=== PATIENT | female | born 1965 | race Caucasian/White ===

== ENCOUNTER 2018-07-30 23:18 | Inpatient (IN) | payer OTHER, MEDICAID ==
[~2018-07-30] VITALS: Ht 170.2 cm; Wt 69.9 kg
[2018-07-31] MEDS ORDERED: QUEtiapine FUMARATE 100 MG TABLET PO PRN (01:45)
[2018-07-31 02:38] VITALS: BP 130/82
[2018-07-31] MEDS ORDERED: PNEUMOCOCCAL VACCINE POLYVALENT 0.5 ML VIAL [PPSV23] IM ONE (05:30)
[2018-07-31 08:44] VITALS: BP 124/71
[2018-07-31] MEDS ORDERED: PROMETHAZINE HCL 25 MG TABLET PO PRN (11:15)
[2018-07-31] MEDS ORDERED: ACETAMINOPHEN 325 MG TABLET PO PRN (11:15)
[2018-07-31] MEDS ORDERED: MAGNESIUM HYDROXIDE SUSPENSION 30 ML UDCUP PO PRN (11:15)
[2018-07-31] MEDS ORDERED: LOPERAMIDE HCL 2 MG CAPSULE PO PRN (11:15)
[2018-07-31] MEDS ORDERED: GuaiFENesin/D-METHORPHAN [SUGAR-FREE] 200-20MG/10 ML SYRUP UDCUP PO PRN (11:15)
[2018-07-31] MEDS ORDERED: TUBERCULIN, PURIFIED PROTEIN DERIVATIVE 5 TU/0.1 ML SYRINGE ID ONE (11:15)
[2018-07-31] MEDS ORDERED: MAG HYDROX/AL HYDROX/SIMETH ES 30 ML SUSPENSION UDCUP PO PRN (11:15)
[2018-07-31] MEDS ORDERED: LORazepam 2 MG TABLET PO PRN (11:15)
[2018-07-31] MEDS: LORazepam 2 MG TABLET PO PRN ×2 (13:09→20:42)
[2018-07-31 16:26] VITALS: BP 125/89
[2018-07-31] MEDS: THIAMINE HCL 100 MG TABLET PO SCH (19:46)
[2018-07-31] MEDS: OLANZapine 5 MG RAPDIS TABLET PO SCH (20:47)
[2018-08-01 06:22] VITALS: BP 120/82
[2018-08-01 07:56] LABS: BASOPHILS % (AUTO) 0.7 % (0.0-2.0); EOSINOPHILS % (AUTO) 0 % (1.0-6.0); HEMATOCRIT 40.7 % (36-46); HEMOGLOBIN 13.4 g/dL (12.0-16.0); LYMPHOCYTES # (AUTO) 1.8 K/uL (1.0-4.8); LYMPHOCYTES % (AUTO) 28.4 % (22.0-44.0); MEAN CORPUSCULAR HEMOGLOBIN 31.4 pg (26.0-34.0); MEAN CORPUSCULAR HGB CONC 32.9 G/dL (31.0-37.0); MEAN CORPUSCULAR VOLUME 95 fL (80-100); MONOCYTES # (AUTO) 0.4 K/uL (0.1-1.0); MONOCYTES % (AUTO) 6.2 % (2.0-9.0); NEUTROPHILS # (AUTO) 4.1 K/uL (1.8-7.7); NEUTROPHILS % (AUTO) 64.7 % (40.0-70.0); PLATELET COUNT (AUTO) 325 K/uL (150-450); RED BLOOD CELL COUNT(AUTO) 4.27 MIL/uL (4.00-5.20); RED CELL DISTRIBUTION WIDTH 13.8 % (11.5-14.5)
[2018-08-01] MEDS: MULTIVITAMINS WITH MINERALS, THERAPEUTIC TABLET PO SCH (08:23)
[2018-08-01] MEDS: THIAMINE HCL 100 MG TABLET PO SCH ×2 (08:23→16:43)
[2018-08-01] MEDS: NALTREXONE HCL 50 MG TABLET PO SCH (08:24)
[2018-08-01] MEDS: FOLIC ACID 1 MG TABLET PO SCH (08:24)
[2018-08-01] MEDS: FLUoxetine HCL 20 MG CAPSULE PO SCH (08:24)
[2018-08-01 08:43] VITALS: BP 106/63
[2018-08-01 08:48] LABS: HEMOGLOBIN A1C 5.4 % (4.5-6.2)
[2018-08-01 08:59] LABS: ALANINE AMINOTRANSFERASE 20 U/L (12-78); ALBUMIN 3.1 g/dL (3.4-5.0); ALKALINE PHOSPHATASE 68 U/L (46-116); ANION GAP 5 mmol/L (8-16); ASPARTATE AMINOTRANSFERASE 14 U/L (15-37); BILIRUBIN,TOTAL 0.3 mg/dL (0.1-1.0); CALCIUM, TOTAL 8.6 mg/dL (8.8-10.5); CARBON DIOXIDE 31 mmol/L (22-29); CHLORIDE 103 mmol/L (98-107); CHOL/HDL RATIO 2.8 (3.9-5.7); CHOLESTEROL 168 mg/dL (131-200); CREATININE 0.74 mg/dL (0.60-1.30); FREE T4 (FREE THYROXINE) 0.97 ng/dL (0.76-1.46); GLOMERULAR FILTR. RATE CALC > 60 mL/min (>60); GLUCOSE,RANDOM 99 mg/dL (70-110); HDL CHOLESTEROL 59 mg/dL (40-60); LDL CHOL (CALC.) 84 mg/dL (0-130); POTASSIUM 4.3 mmol/L (3.5-5.1); SODIUM SERUM 139 mmol/L (136-145); THYROID STIMULATING HORMONE 1.51 uIU/mL (0.36-3.74); TOTAL PROTEIN, SERUM 6.2 g/dL (6.4-8.2); TRIGLYCERIDES 123 mg/dL (15-150); UREA NITROGEN, BLOOD 17 mg/dL (7-18)
[2018-08-01] MEDS: LORazepam 2 MG TABLET PO PRN ×2 (11:01→17:35)
[2018-08-01] MEDS: OLANZapine 5 MG RAPDIS TABLET PO PRN (11:01)
[2018-08-01 16:08] VITALS: BP 124/60
[2018-08-01] MEDS: DOCUSATE SODIUM 250 MG CAPSULE PO SCH (20:20)
[2018-08-01] MEDS: OLANZapine 5 MG RAPDIS TABLET PO SCH (20:20)
[2018-08-02 03:30] VITALS: BP 120/69
[2018-08-02 08:17] VITALS: BP 114/70
[2018-08-02] MEDS: FLUoxetine HCL 20 MG CAPSULE PO SCH (08:26)
[2018-08-02] MEDS: HydrOXYzine PAMOATE 50 MG CAPSULE PO PRN ×2 (08:26→12:44)
[2018-08-02] MEDS: OLANZapine 5 MG RAPDIS TABLET PO PRN ×2 (08:26→16:59)
[2018-08-02] MEDS: NALTREXONE HCL 50 MG TABLET PO SCH (08:26)
[2018-08-02] MEDS: LORazepam 2 MG TABLET PO PRN ×3 (08:26→16:59)
[2018-08-02] MEDS: FOLIC ACID 1 MG TABLET PO SCH (08:27)
[2018-08-02] MEDS: THIAMINE HCL 100 MG TABLET PO SCH ×2 (08:27→16:59)
[2018-08-02] MEDS: MULTIVITAMINS WITH MINERALS, THERAPEUTIC TABLET PO SCH (08:27)
[2018-08-02 16:16] VITALS: BP 123/63
[2018-08-02] MEDS: OLANZapine 10 MG RAPDIS TABLET PO SCH (20:45)
[2018-08-02] MEDS: DOCUSATE SODIUM 250 MG CAPSULE PO SCH (20:45)
[2018-08-03 00:13] VITALS: BP 122/70
[2018-08-03 08:44] VITALS: BP 108/70
[2018-08-03] MEDS: MULTIVITAMINS WITH MINERALS, THERAPEUTIC TABLET PO SCH (08:50)
[2018-08-03] MEDS: FOLIC ACID 1 MG TABLET PO SCH (08:50)
[2018-08-03] MEDS: FLUoxetine HCL 20 MG CAPSULE PO SCH (08:50)
[2018-08-03] MEDS: THIAMINE HCL 100 MG TABLET PO SCH ×2 (08:50→16:23)
[2018-08-03] MEDS: NALTREXONE HCL 50 MG TABLET PO SCH (08:50)
[2018-08-03] MEDS: LORazepam 2 MG TABLET PO PRN ×2 (16:23→21:18)
[2018-08-03 16:43] VITALS: BP 128/80
[2018-08-03] MEDS: OLANZapine 10 MG RAPDIS TABLET PO SCH (20:47)
[2018-08-03] MEDS: DOCUSATE SODIUM 250 MG CAPSULE PO SCH (20:47)
[2018-08-04 00:35] VITALS: BP 122/82
[2018-08-04 08:26] VITALS: BP 112/77
[2018-08-04] MEDS: MULTIVITAMINS WITH MINERALS, THERAPEUTIC TABLET PO SCH (08:30)
[2018-08-04] MEDS: FLUoxetine HCL 20 MG CAPSULE PO SCH (08:30)
[2018-08-04] MEDS: FOLIC ACID 1 MG TABLET PO SCH (08:30)
[2018-08-04] MEDS: THIAMINE HCL 100 MG TABLET PO SCH ×2 (08:30→16:12)
[2018-08-04] MEDS: NALTREXONE HCL 50 MG TABLET PO SCH (08:30)
[2018-08-04] MEDS: LORazepam 2 MG TABLET PO PRN ×2 (08:45→16:58)
[2018-08-04] MEDS: OLANZapine 5 MG RAPDIS TABLET PO PRN (11:14)
[2018-08-04 16:26] VITALS: BP 117/74
[2018-08-04] MEDS: DOCUSATE SODIUM 250 MG CAPSULE PO SCH (20:04)
[2018-08-04] MEDS: OLANZapine 10 MG RAPDIS TABLET PO SCH (20:05)
[2018-08-04] MEDS: ZOLPIDEM TARTRATE 10 MG TABLET PO PRN (20:45)
[2018-08-05 06:25] VITALS: BP 112/71
[2018-08-05 08:18] VITALS: BP 113/64
[2018-08-05] MEDS: FLUoxetine HCL 20 MG CAPSULE PO SCH (08:27)
[2018-08-05] MEDS: FOLIC ACID 1 MG TABLET PO SCH (08:28)
[2018-08-05] MEDS: MULTIVITAMINS WITH MINERALS, THERAPEUTIC TABLET PO SCH (08:28)
[2018-08-05] MEDS: THIAMINE HCL 100 MG TABLET PO SCH ×2 (08:28→16:14)
[2018-08-05] MEDS: NALTREXONE HCL 50 MG TABLET PO SCH (08:29)
[2018-08-05] MEDS: LORazepam 2 MG TABLET PO PRN ×2 (08:35→16:16)
[2018-08-05 16:25] VITALS: BP 108/62
[2018-08-05] MEDS: DOCUSATE SODIUM 250 MG CAPSULE PO SCH (20:08)
[2018-08-05] MEDS: OLANZapine 10 MG RAPDIS TABLET PO SCH (20:08)
[2018-08-06 01:42] VITALS: BP 110/63
[2018-08-06 08:14] VITALS: BP 115/60
[2018-08-06] MEDS: FLUoxetine HCL 20 MG CAPSULE PO SCH (08:26)
[2018-08-06] MEDS: THIAMINE HCL 100 MG TABLET PO SCH ×2 (08:26→16:14)
[2018-08-06] MEDS: FOLIC ACID 1 MG TABLET PO SCH (08:26)
[2018-08-06] MEDS: MULTIVITAMINS WITH MINERALS, THERAPEUTIC TABLET PO SCH (08:26)
[2018-08-06] MEDS: NALTREXONE HCL 50 MG TABLET PO SCH (08:26)
[2018-08-06 16:10] VITALS: BP 110/82
[2018-08-06] MEDS: LORazepam 2 MG TABLET PO PRN (16:14)
[2018-08-06] MEDS: DOCUSATE SODIUM 250 MG CAPSULE PO SCH (20:03)
[2018-08-06] MEDS: OLANZapine 10 MG RAPDIS TABLET PO SCH (20:04)
[2018-08-06] MEDS: ZOLPIDEM TARTRATE 10 MG TABLET PO PRN (21:50)
[2018-08-07] VITALS: BP 121/68
[2018-08-07] MEDS: LORazepam 2 MG TABLET PO PRN ×3 (00:13→19:51)
[2018-08-07 08:16] VITALS: BP 115/66
[2018-08-07] MEDS: FOLIC ACID 1 MG TABLET PO SCH (09:02)
[2018-08-07] MEDS: THIAMINE HCL 100 MG TABLET PO SCH ×2 (09:02→16:38)
[2018-08-07] MEDS: FLUoxetine HCL 20 MG CAPSULE PO SCH (09:02)
[2018-08-07] MEDS: MULTIVITAMINS WITH MINERALS, THERAPEUTIC TABLET PO SCH (09:02)
[2018-08-07] MEDS: NALTREXONE HCL 50 MG TABLET PO SCH (09:03)
[2018-08-07 16:18] VITALS: BP 109/63
[2018-08-07 19:52] VITALS: BP 118/63
[2018-08-07] MEDS: DOCUSATE SODIUM 250 MG CAPSULE PO SCH (20:35)
[2018-08-07] MEDS: OLANZapine 10 MG RAPDIS TABLET PO SCH (20:36)
[2018-08-08 06:46] VITALS: BP 110/72
[2018-08-08 08:30] VITALS: BP 110/60
[2018-08-08] MEDS: FOLIC ACID 1 MG TABLET PO SCH (08:57)
[2018-08-08] MEDS: FLUoxetine HCL 20 MG CAPSULE PO SCH (08:57)
[2018-08-08] MEDS: NALTREXONE HCL 50 MG TABLET PO SCH (08:57)
[2018-08-08] MEDS: MULTIVITAMINS WITH MINERALS, THERAPEUTIC TABLET PO SCH (08:57)
[2018-08-08] MEDS: THIAMINE HCL 100 MG TABLET PO SCH ×2 (08:57→16:39)
[2018-08-08] MEDS: LORazepam 2 MG TABLET PO PRN ×2 (09:17→19:14)
[2018-08-08 16:18] VITALS: BP 114/68
[2018-08-08] MEDS: DOCUSATE SODIUM 250 MG CAPSULE PO SCH (20:47)
[2018-08-08] MEDS: OLANZapine 10 MG RAPDIS TABLET PO SCH (20:47)
[2018-08-08] MEDS: ZOLPIDEM TARTRATE 10 MG TABLET PO PRN (20:58)
[2018-08-09 00:13] VITALS: BP 112/63
[2018-08-09 08:10] VITALS: BP 108/61
[2018-08-09] MEDS: NALTREXONE HCL 50 MG TABLET PO SCH (08:47)
[2018-08-09] MEDS: THIAMINE HCL 100 MG TABLET PO SCH ×2 (08:47→16:47)
[2018-08-09] MEDS: FLUoxetine HCL 20 MG CAPSULE PO SCH (08:47)
[2018-08-09] MEDS: FOLIC ACID 1 MG TABLET PO SCH (08:47)
[2018-08-09] MEDS: MULTIVITAMINS WITH MINERALS, THERAPEUTIC TABLET PO SCH (08:47)
[2018-08-09] MEDS ORDERED: TUBERCULIN, PURIFIED PROTEIN DERIVATIVE 5 TU/0.1 ML SYRINGE ID ONE (14:00)
[2018-08-09 16:00] VITALS: BP 119/79
[2018-08-09] MEDS ORDERED: FLUO-191 PO (19:08)
[2018-08-09] MEDS ORDERED: OLAN10TA6 PO (19:08)
[2018-08-09] MEDS ORDERED: DOCU250C91 PO (19:08)
[2018-08-09] MEDS: DOCUSATE SODIUM 250 MG CAPSULE PO SCH (20:44)
[2018-08-09] MEDS: OLANZapine 10 MG RAPDIS TABLET PO SCH (20:44)
[2018-08-09] MEDS: ZOLPIDEM TARTRATE 10 MG TABLET PO PRN (21:03)
[2018-08-10 00:06] VITALS: BP 120/71
[2018-08-10] MEDS ORDERED: NALT50TA6 PO (05:31)
[2018-08-10 08:21] VITALS: BP 112/73
== END 2018-08-10 07:50 | disposition home or self-care (01) | DRG 885 ==
LOC: B3A 07-31 01:44 → B2X 07-31 09:41
PROVIDERS: ADMIT Psychiatry & Neurology Psychiatry; ATTEND Psychiatry & Neurology Psychiatry
DX: F25.0 Schizoaffective disorder, bipolar type (principal); F15.90 Other stimulant use, unspecified, uncomplicated; F60.0 Paranoid personality disorder; F12.90 Cannabis use, unspecified, uncomplicated; F17.210 Nicotine dependence, cigarettes, uncomplicated; Z65.3 Problems related to other legal circumstances; Z91.5 Personal history of self-harm; Z59.0 Homelessness; Z91.018 Allergy to other foods; Z91.010 Allergy to peanuts; Z91.19 Patient's noncompliance with other medical treatment and regimen
CPT/HCPCS: 83036; 84436; 84439; 84443; 86592

== ENCOUNTER 2018-08-11 10:40 | Emergency (ER) | payer MEDICARE, MEDICAID ==
[~2018-08-11] VITALS: Ht 165.1 cm; Wt 68.0 kg
[~2018-08-11 10:40] MED LIST: DOCU250C91 PO; FLUO-191 PO; NALT50TA6 PO; OLAN10TA6 PO
[2018-08-11 10:46] VITALS: BP 154/70
[2018-08-11 11:05] LABS: BASOPHILS % (AUTO) 0.7 % (0.0-2.0); EOSINOPHILS % (AUTO) 0 % (1.0-6.0); HEMATOCRIT 41.4 % (36-46); HEMOGLOBIN 13.9 g/dL (12.0-16.0); LYMPHOCYTES # (AUTO) 1.3 K/uL (1.0-4.8); LYMPHOCYTES % (AUTO) 14.6 % (22.0-44.0); MEAN CORPUSCULAR HGB CONC 33.5 G/dL (31.0-37.0); MEAN CORPUSCULAR VOLUME 95 fL (80-100); MONOCYTES # (AUTO) 0.4 K/uL (0.1-1.0); MONOCYTES % (AUTO) 4.4 % (2.0-9.0); NEUTROPHILS # (AUTO) 6.9 K/uL (1.8-7.7); NEUTROPHILS % (AUTO) 80.3 % (40.0-70.0); PLATELET COUNT (AUTO) 246 K/uL (150-450); RED BLOOD CELL COUNT(AUTO) 4.34 MIL/uL (4.00-5.20); RED CELL DISTRIBUTION WIDTH 13.1 % (11.5-14.5)
[2018-08-11] MEDS ORDERED: HALOPERIDOL 5 MG TABLET PO ONE (11:15)
[2018-08-11 11:16] LABS: ANION GAP 6 mmol/L (8-16); CALCIUM, TOTAL 9.1 mg/dL (8.8-10.5); CARBON DIOXIDE 28 mmol/L (22-29); CHLORIDE 104 mmol/L (98-107); CREATININE 0.82 mg/dL (0.60-1.30); GLOMERULAR FILTR. RATE CALC > 60 mL/min (>60); GLUCOSE,RANDOM 97 mg/dL (70-110); POTASSIUM 4.1 mmol/L (3.5-5.1); SODIUM SERUM 138 mmol/L (136-145); UREA NITROGEN, BLOOD 18 mg/dL (7-18)
[2018-08-11 11:24] LABS: ALANINE AMINOTRANSFERASE 28 U/L (12-78); ALBUMIN 3.4 g/dL (3.4-5.0); ALKALINE PHOSPHATASE 71 U/L (46-116); ASPARTATE AMINOTRANSFERASE 19 U/L (15-37); BILIRUBIN,TOTAL 0.3 mg/dL (0.1-1.0); TOTAL PROTEIN, SERUM 7.1 g/dL (6.4-8.2)
[2018-08-11 11:26] LABS: AMPHET/METH SCREEN,URINE NEGATIVE (NEGATIVE); BARBITURATE SCREEN, URINE NEGATIVE (NEGATIVE); BENZODIAZEPINES SCREEN,URINE NEGATIVE (NEGATIVE); CANNABINOID SCREEN,URINE NEGATIVE (NEGATIVE); COCAINE SCREEN,URINE NEGATIVE (NEGATIVE); METHADONE SCREEN, URINE NEGATIVE (NEGATIVE); OPIATE SCREEN,URINE NEGATIVE (NEGATIVE)
[2018-08-11 11:27] LABS: PHENCYCLIDINE SCREEN,URINE NEGATIVE (NEGATIVE)
== END 2018-08-11 11:46 | disposition home or self-care (01) ==
LOC: EMS 10:40
DX: F25.0 Schizoaffective disorder, bipolar type (principal); Z88.0 Allergy status to penicillin; Z91.010 Allergy to peanuts
CPT/HCPCS: 36415; 80053; 80307; 85025; 99284; G0480

== ENCOUNTER 2018-10-28 13:16 | Inpatient (IN) | payer OTHER, MEDICAID ==
[~2018-10-28] VITALS: Ht 167.6 cm; Wt 67.0 kg
[2018-10-28 15:29] VITALS: BP 146/78
[2018-10-28 16:15] VITALS: BP 143/89
[2018-10-28] MEDS ORDERED: ALBUTEROL SULFATE HFA 90 MCG/PUFF 8 GM INHALER IH PRN (16:30)
[2018-10-28] MEDS ORDERED: GuaiFENesin/D-METHORPHAN [SUGAR-FREE] 200-20MG/10 ML SYRUP UDCUP PO PRN (16:30)
[2018-10-28] MEDS ORDERED: MAGNESIUM HYDROXIDE SUSPENSION 30 ML UDCUP PO PRN (16:30)
[2018-10-28] MEDS ORDERED: MAG HYDROX/AL HYDROX/SIMETH ES 30 ML SUSPENSION UDCUP PO PRN (16:30)
[2018-10-28] MEDS ORDERED: LOPERAMIDE HCL 2 MG CAPSULE PO PRN (16:30)
[2018-10-28] MEDS ORDERED: CloNIDine HCL 0.1 MG TABLET PO PRN (16:30)
[2018-10-28] MEDS ORDERED: ONDANSETRON HCL 4 MG TABLET PO PRN (16:30)
[2018-10-28] MEDS ORDERED: NICOTINE 14 MG/24 HOUR PATCH TD PRN (16:30)
[2018-10-28] MEDS ORDERED: PETROLATUM,WHITE 28 GM JELLY TP PRN (16:30)
[2018-10-28] MEDS ORDERED: IBUPROFEN 400 MG TABLET PO PRN (16:30)
[2018-10-28] MEDS ORDERED: ACETAMINOPHEN 325 MG TABLET PO PRN (16:30)
[2018-10-28] MEDS: LORazepam 2 MG TABLET PO PRN (20:01)
[2018-10-28] MEDS: OLANZapine 5 MG RAPDIS TABLET PO PRN (20:01)
[2018-10-29 03:45] VITALS: BP 138/86
[2018-10-29] MEDS: LORazepam 2 MG TABLET PO PRN ×2 (03:50→21:13)
[2018-10-29 08:10] VITALS: BP 132/91
[2018-10-29 08:13] LABS: BASOPHILS % (AUTO) 0.6 % (0.0-2.0); EOSINOPHILS % (AUTO) 0 % (1.0-6.0); HEMATOCRIT 41.3 % (36-46); HEMOGLOBIN 13.7 g/dL (12.0-16.0); LYMPHOCYTES # (AUTO) 1.4 K/uL (1.0-4.8); MEAN CORPUSCULAR HEMOGLOBIN 31.9 pg (26.0-34.0); MEAN CORPUSCULAR HGB CONC 33.3 G/dL (31.0-37.0); MEAN CORPUSCULAR VOLUME 96 fL (80-100); MONOCYTES # (AUTO) 0.4 K/uL (0.1-1.0); MONOCYTES % (AUTO) 5.1 % (2.0-9.0); NEUTROPHILS # (AUTO) 5.3 K/uL (1.8-7.7); NEUTROPHILS % (AUTO) 74.3 % (40.0-70.0); PLATELET COUNT (AUTO) 243 K/uL (150-450)
[2018-10-29 08:37] LABS: ALANINE AMINOTRANSFERASE 15 U/L (12-78); ALKALINE PHOSPHATASE 62 U/L (46-116); ANION GAP 10 mmol/L (8-16); ASPARTATE AMINOTRANSFERASE 17 U/L (15-37); BILIRUBIN,TOTAL 0.2 mg/dL (0.1-1.0); CALCIUM, TOTAL 8.9 mg/dL (8.8-10.5); CARBON DIOXIDE 29 mmol/L (22-29); CHLORIDE 105 mmol/L (98-107); CHOL/HDL RATIO 3.2 (3.9-5.7); CHOLESTEROL 154 mg/dL (131-200); CREATININE 0.71 mg/dL (0.60-1.30); FREE T4 (FREE THYROXINE) 0.99 ng/dL (0.76-1.46); GLOMERULAR FILTR. RATE CALC > 60 mL/min (>60); GLUCOSE,RANDOM 89 mg/dL (70-110); HDL CHOLESTEROL 48 mg/dL (40-60); LDL CHOL (CALC.) 76 mg/dL (0-130); POTASSIUM 3.9 mmol/L (3.5-5.1); SODIUM SERUM 144 mmol/L (136-145); THYROID STIMULATING HORMONE 0.63 uIU/mL (0.36-3.74); TOTAL PROTEIN, SERUM 6.1 g/dL (6.4-8.2); TRIGLYCERIDES 150 mg/dL (15-150); UREA NITROGEN, BLOOD 17 mg/dL (7-18)
[2018-10-29] MEDS: FLUoxetine HCL 20 MG CAPSULE PO SCH (12:42)
[2018-10-29 16:07] VITALS: BP 131/72
[2018-10-29] MEDS: OLANZapine 10 MG RAPDIS TABLET PO SCH (20:32)
[2018-10-29] MEDS: ZOLPIDEM TARTRATE 10 MG TABLET PO PRN (22:00)
[2018-10-30 00:22] VITALS: BP 139/77
[2018-10-30 08:24] VITALS: BP 136/82
[2018-10-30] MEDS: FLUoxetine HCL 20 MG CAPSULE PO SCH (08:26)
[2018-10-30 16:13] VITALS: BP 121/64
[2018-10-30] MEDS: OLANZapine 10 MG RAPDIS TABLET PO SCH (20:32)
[2018-10-30] MEDS: ZOLPIDEM TARTRATE 10 MG TABLET PO PRN (20:53)
[2018-10-31 00:08] VITALS: BP 137/63
[2018-10-31] MEDS: LORazepam 2 MG TABLET PO PRN (03:02)
[2018-10-31] MEDS: FLUoxetine HCL 20 MG CAPSULE PO SCH (08:21)
[2018-10-31 08:36] VITALS: BP 110/68
[2018-10-31] MEDS ORDERED: MAGNESIUM CITRATE 300 ML ORAL SOLUTION PO PRN (11:45)
[2018-10-31 16:03] VITALS: BP 107/60
[2018-10-31] MEDS: OLANZapine 10 MG RAPDIS TABLET PO SCH (20:26)
[2018-10-31] MEDS: ZOLPIDEM TARTRATE 10 MG TABLET PO PRN (20:57)
[2018-11-01 03:44] VITALS: BP 116/90
[2018-11-01] MEDS: FLUoxetine HCL 20 MG CAPSULE PO SCH (09:36)
[2018-11-01] MEDS: BuPROPion HCL XL 150 MG ER TABLET PO SCH (09:36)
[2018-11-01 09:41] VITALS: BP 123/89
[2018-11-01] MEDS: OLANZapine 5 MG RAPDIS TABLET PO PRN (15:47)
[2018-11-01 16:09] VITALS: BP 133/79
[2018-11-01] MEDS: OLANZapine 10 MG RAPDIS TABLET PO SCH (20:29)
[2018-11-01] MEDS: ZOLPIDEM TARTRATE 10 MG TABLET PO PRN (21:06)
[2018-11-02 07:04] VITALS: BP 124/82
[2018-11-02 08:15] VITALS: BP 118/70
[2018-11-02] MEDS: FLUoxetine HCL 20 MG CAPSULE PO SCH (08:53)
[2018-11-02] MEDS: BuPROPion HCL XL 150 MG ER TABLET PO SCH (08:53)
[2018-11-02] MEDS: DOCUSATE SODIUM 100 MG CAPSULE PO PRN (08:53)
[2018-11-02 16:27] VITALS: BP 123/78
[2018-11-02] MEDS: OLANZapine 10 MG RAPDIS TABLET PO SCH (20:49)
[2018-11-02] MEDS: ZOLPIDEM TARTRATE 10 MG TABLET PO PRN (21:40)
[2018-11-03 05:57] VITALS: BP 118/73
[2018-11-03] MEDS: BuPROPion HCL XL 150 MG ER TABLET PO SCH (08:41)
[2018-11-03] MEDS: FLUoxetine HCL 20 MG CAPSULE PO SCH (08:42)
[2018-11-03 08:52] VITALS: BP 112/73
[2018-11-03 16:27] VITALS: BP 118/74
[2018-11-03] MEDS: OLANZapine 10 MG RAPDIS TABLET PO SCH (20:25)
[2018-11-03] MEDS: ZOLPIDEM TARTRATE 10 MG TABLET PO PRN (21:24)
[2018-11-04 04:46] VITALS: BP 124/70
[2018-11-04 08:23] VITALS: BP 113/71
[2018-11-04] MEDS: BuPROPion HCL XL 150 MG ER TABLET PO SCH (09:13)
[2018-11-04] MEDS: FLUoxetine HCL 20 MG CAPSULE PO SCH (09:14)
[2018-11-04 16:07] VITALS: BP 109/76
[2018-11-04] MEDS: OLANZapine 10 MG RAPDIS TABLET PO SCH (20:37)
[2018-11-04] MEDS: ZOLPIDEM TARTRATE 10 MG TABLET PO PRN (21:33)
[2018-11-05 01:02] VITALS: BP 121/77
[2018-11-05 08:17] VITALS: BP 106/61
[2018-11-05] MEDS: BuPROPion HCL XL 150 MG ER TABLET PO SCH (08:48)
[2018-11-05] MEDS: FLUoxetine HCL 20 MG CAPSULE PO SCH (08:48)
[2018-11-05] MEDS: MUPIROCIN CALCIUM 2% 22 GM OINTMENT NASAL SCH ×2 (11:00→16:39)
[2018-11-05 16:12] VITALS: BP 115/76
[2018-11-05] MEDS: OLANZapine 10 MG RAPDIS TABLET PO SCH (20:27)
[2018-11-05] MEDS: ZOLPIDEM TARTRATE 10 MG TABLET PO PRN (20:47)
[2018-11-06 00:31] VITALS: BP 121/80
[2018-11-06] MEDS: MUPIROCIN CALCIUM 2% 22 GM OINTMENT NASAL SCH ×2 (08:26→17:27)
[2018-11-06] MEDS: FLUoxetine HCL 20 MG CAPSULE PO SCH (08:26)
[2018-11-06] MEDS: BuPROPion HCL XL 150 MG ER TABLET PO SCH (08:26)
[2018-11-06 08:32] VITALS: BP 114/86
[2018-11-06 16:00] VITALS: BP 106/67
[2018-11-06] MEDS: OLANZapine 10 MG RAPDIS TABLET PO SCH (20:12)
[2018-11-06] MEDS: ZOLPIDEM TARTRATE 10 MG TABLET PO PRN (20:52)
[2018-11-07] VITALS: BP 112/69
[2018-11-07] MEDS: LORazepam 2 MG TABLET PO PRN ×2 (01:26→21:33)
[2018-11-07 08:17] VITALS: BP 110/75
[2018-11-07] MEDS: MUPIROCIN CALCIUM 2% 22 GM OINTMENT NASAL SCH ×2 (08:45→16:02)
[2018-11-07] MEDS: FLUoxetine HCL 20 MG CAPSULE PO SCH (08:45)
[2018-11-07] MEDS: BuPROPion HCL XL 150 MG ER TABLET PO SCH (08:46)
[2018-11-07 16:01] VITALS: BP 109/82
[2018-11-07] MEDS: DOCUSATE SODIUM 100 MG CAPSULE PO PRN (18:18)
[2018-11-07] MEDS: ZOLPIDEM TARTRATE 10 MG TABLET PO PRN (20:06)
[2018-11-07] MEDS: OLANZapine 10 MG RAPDIS TABLET PO SCH (20:06)
[2018-11-08 00:38] VITALS: BP 114/68
[2018-11-08 08:20] VITALS: BP 106/67
[2018-11-08] MEDS: FLUoxetine HCL 20 MG CAPSULE PO SCH (08:57)
[2018-11-08] MEDS: MUPIROCIN CALCIUM 2% 22 GM OINTMENT NASAL SCH ×2 (08:57→17:24)
[2018-11-08] MEDS: BuPROPion HCL XL 150 MG ER TABLET PO SCH (08:57)
[2018-11-08 16:01] VITALS: BP 112/69
[2018-11-08] MEDS: DOCUSATE SODIUM 100 MG CAPSULE PO PRN (17:25)
[2018-11-08] MEDS: OLANZapine 10 MG RAPDIS TABLET PO SCH (20:15)
[2018-11-08] MEDS: ZOLPIDEM TARTRATE 10 MG TABLET PO PRN (21:21)
[2018-11-09] VITALS: BP 103/77
[2018-11-09 08:10] VITALS: BP 123/67
[2018-11-09] MEDS: BuPROPion HCL XL 150 MG ER TABLET PO SCH (08:26)
[2018-11-09] MEDS: FLUoxetine HCL 20 MG CAPSULE PO SCH (08:26)
[2018-11-09] MEDS: MUPIROCIN CALCIUM 2% 22 GM OINTMENT NASAL SCH (08:28)
[2018-11-09] MEDS ORDERED: OLAN10TA6 PO (08:45)
[2018-11-09] MEDS ORDERED: MUPI22OI2 NASAL (08:45)
[2018-11-09] MEDS ORDERED: FLUO-191 PO (08:45)
[2018-11-09] MEDS ORDERED: BUPR-93 PO (08:45)
== END 2018-11-09 13:25 | disposition home or self-care (01) | DRG 885 ==
LOC: B2X 15:26
PROVIDERS: ATTEND Psychiatry & Neurology Psychiatry
DX: F25.9 Schizoaffective disorder, unspecified (principal); R45.851 Suicidal ideations; F10.10 Alcohol abuse, uncomplicated; Y90.0 Blood alcohol level of less than 20 mg/100 ml; K59.00 Constipation, unspecified; F19.10 Other psychoactive substance abuse, uncomplicated; B95.62 Methicillin resistant Staphylococcus aureus infection as the cause of diseases classified elsewhere; R10.13 Epigastric pain; F15.90 Other stimulant use, unspecified, uncomplicated; Z59.0 Homelessness; Z71.41 Alcohol abuse counseling and surveillance of alcoholic; Z88.0 Allergy status to penicillin; Z91.010 Allergy to peanuts; Z71.51 Drug abuse counseling and surveillance of drug abuser
CPT/HCPCS: 83036; 84439; 84443; 87081

== ENCOUNTER 2019-02-20 13:53 | Inpatient (IN) | payer OTHER, MEDICAID ==
[~2019-02-20] VITALS: Ht 167.6 cm; Wt 63.5 kg
[~2019-02-20 13:53] MED LIST changes: +BUPR-93 PO; -DOCU250C91 PO; +MUPI22OI2 NASAL; -NALT50TA6 PO
[2019-02-20] MEDS ORDERED: PNEUMOCOCCAL VACCINE POLYVALENT 0.5 ML VIAL [PPSV23] IM ONE (17:00)
[2019-02-20] MEDS ORDERED: INFLUENZA VIRUS VACCINE QVS 2019-20 (3YR+)/PF 60 MCG/0.5 ML SYRINGE IM ONE (17:00)
[2019-02-20 21:27] VITALS: BP 129/73
[2019-02-20] MEDS ORDERED: ALBUTEROL SULFATE HFA 90 MCG/PUFF 8 GM INHALER IH PRN (21:45)
[2019-02-20] MEDS ORDERED: IBUPROFEN 400 MG TABLET PO PRN (21:45)
[2019-02-20] MEDS ORDERED: CloNIDine HCL 0.1 MG TABLET PO PRN (21:45)
[2019-02-20] MEDS ORDERED: LOPERAMIDE HCL 2 MG CAPSULE PO PRN (21:45)
[2019-02-20] MEDS ORDERED: ACETAMINOPHEN 325 MG TABLET PO PRN (21:45)
[2019-02-20] MEDS ORDERED: PETROLATUM,WHITE 28 GM JELLY TP PRN (21:45)
[2019-02-20] MEDS ORDERED: MAG HYDROX/AL HYDROX/SIMETH ES 30 ML SUSPENSION UDCUP PO PRN (21:45)
[2019-02-20] MEDS ORDERED: ONDANSETRON HCL 4 MG TABLET PO PRN (21:45)
[2019-02-20] MEDS ORDERED: NICOTINE 14 MG/24 HOUR PATCH TD PRN (21:45)
[2019-02-20] MEDS ORDERED: GuaiFENesin/D-METHORPHAN [SUGAR-FREE] 200-20MG/10 ML SYRUP UDCUP PO PRN (21:45)
[2019-02-21] MEDS: ZOLPIDEM TARTRATE 10 MG TABLET PO PRN (00:17)
[2019-02-21] MEDS: HALOPERIDOL 5 MG TABLET PO PRN (00:17)
[2019-02-21 00:53] VITALS: BP 142/70
[2019-02-21 08:13] VITALS: BP 122/72
[2019-02-21 16:04] VITALS: BP 137/80
[2019-02-21] MEDS ORDERED: OLANZapine 5 MG RAPDIS TABLET PO SCH (21:00)
[2019-02-22 01:22] VITALS: BP 122/70
[2019-02-22 08:20] LABS: BASOPHILS % (AUTO) 0.8 % (0.0-2.0); EOSINOPHILS % (AUTO) 0 % (1.0-6.0); HEMOGLOBIN 14.4 g/dL (12.0-16.0); LYMPHOCYTES # (AUTO) 1.6 K/uL (1.0-4.8); LYMPHOCYTES % (AUTO) 31.8 % (22.0-44.0); MEAN CORPUSCULAR HGB CONC 33.5 G/dL (31.0-37.0); MEAN CORPUSCULAR VOLUME 96 fL (80-100); MONOCYTES # (AUTO) 0.3 K/uL (0.1-1.0); MONOCYTES % (AUTO) 5.4 % (2.0-9.0); NEUTROPHILS # (AUTO) 3.2 K/uL (1.8-7.7); PLATELET COUNT (AUTO) 268 K/uL (150-450); RED CELL DISTRIBUTION WIDTH 13.2 % (11.5-14.5)
[2019-02-22 08:35] VITALS: BP 130/72
[2019-02-22 08:36] LABS: HEMOGLOBIN A1C 5.3 % (4.5-6.2)
[2019-02-22 08:48] LABS: ANION GAP 6 mmol/L (8-16); CARBON DIOXIDE 29 mmol/L (22-29); CHLORIDE 106 mmol/L (98-107); GLUCOSE,RANDOM 88 mg/dL (70-110); POTASSIUM 3.9 mmol/L (3.5-5.1); SODIUM SERUM 141 mmol/L (136-145)
[2019-02-22 08:49] LABS: ALANINE AMINOTRANSFERASE 13 U/L (12-78); ALBUMIN 3.1 g/dL (3.4-5.0); ALKALINE PHOSPHATASE 60 U/L (46-116); ASPARTATE AMINOTRANSFERASE 11 U/L (15-37); BILIRUBIN,TOTAL 0.2 mg/dL (0.1-1.0); CALCIUM, TOTAL 8.8 mg/dL (8.8-10.5); CHOL/HDL RATIO 3.7 (3.9-5.7); CHOLESTEROL 190 mg/dL (131-200); CREATININE 0.66 mg/dL (0.60-1.30); FREE T4 (FREE THYROXINE) 0.82 ng/dL (0.76-1.46); GLOMERULAR FILTR. RATE CALC > 60 mL/min (>60); HDL CHOLESTEROL 51 mg/dL (40-60); LDL CHOL (CALC.) 109 mg/dL (0-130); THYROID STIMULATING HORMONE 1.86 uIU/mL (0.36-3.74); TOTAL PROTEIN, SERUM 6.2 g/dL (6.4-8.2); TRIGLYCERIDES 151 mg/dL (15-150); UREA NITROGEN, BLOOD 12 mg/dL (7-18)
[2019-02-22] MEDS: MAGNESIUM HYDROXIDE SUSPENSION 30 ML UDCUP PO PRN (11:17)
[2019-02-22] MEDS: LORazepam 2 MG TABLET PO PRN (12:24)
[2019-02-22 16:09] VITALS: BP 118/74
[2019-02-22] MEDS: OLANZapine 10 MG RAPDIS TABLET PO SCH (20:20)
[2019-02-23 02:12] VITALS: BP 119/81
[2019-02-23 08:18] VITALS: BP 130/77
[2019-02-23] MEDS: LORazepam 2 MG TABLET PO PRN (16:17)
[2019-02-23] MEDS: HALOPERIDOL 5 MG TABLET PO PRN (16:17)
[2019-02-23 16:34] VITALS: BP 134/74
[2019-02-23] MEDS: OLANZapine 10 MG RAPDIS TABLET PO SCH (20:27)
[2019-02-24 08:30] VITALS: BP 110/68
[2019-02-24] MEDS ORDERED: HYDROCORTISONE 1% 120 ML LOTION TP PRN (14:15)
[2019-02-24] MEDS: MAGNESIUM HYDROXIDE SUSPENSION 30 ML UDCUP PO PRN (14:35)
[2019-02-24 16:00] VITALS: BP 119/89
[2019-02-24] MEDS: LORazepam 2 MG TABLET PO PRN (16:24)
[2019-02-24] MEDS: OLANZapine 10 MG RAPDIS TABLET PO SCH (20:14)
[2019-02-25 01:13] VITALS: BP 123/74
[2019-02-25 08:14] VITALS: BP 126/67
[2019-02-25 16:30] VITALS: BP 121/86
[2019-02-25] MEDS: MAGNESIUM HYDROXIDE SUSPENSION 30 ML UDCUP PO PRN (18:20)
[2019-02-25] MEDS: LORazepam 2 MG TABLET PO PRN (19:56)
[2019-02-25] MEDS: OLANZapine 10 MG RAPDIS TABLET PO SCH (20:42)
[2019-02-26 02:16] VITALS: BP 118/78
[2019-02-26 08:43] VITALS: BP 107/62
[2019-02-26] MEDS: DOCUSATE SODIUM 100 MG CAPSULE PO PRN (10:48)
[2019-02-26] MEDS ORDERED: BISACODYL 10 MG RECTAL RECTAL SUPPOSITORY PR PRN (15:00)
[2019-02-26 16:32] VITALS: BP 127/77
[2019-02-26] MEDS: OLANZapine 10 MG RAPDIS TABLET PO SCH (20:11)
[2019-02-26] MEDS: ZOLPIDEM TARTRATE 10 MG TABLET PO PRN (21:01)
[2019-02-27 00:35] VITALS: BP 128/79
[2019-02-27] MEDS: LORazepam 2 MG TABLET PO PRN (02:19)
[2019-02-27 08:36] VITALS: BP 115/72
[2019-02-27 16:12] VITALS: BP 113/62
[2019-02-27] MEDS: MAGNESIUM HYDROXIDE SUSPENSION 30 ML UDCUP PO PRN (20:07)
[2019-02-27] MEDS: OLANZapine 10 MG RAPDIS TABLET PO SCH (20:07)
[2019-02-27] MEDS: ZOLPIDEM TARTRATE 10 MG TABLET PO PRN (20:35)
[2019-02-28 01:04] VITALS: BP 136/78
[2019-02-28] MEDS: LORazepam 2 MG TABLET PO PRN (02:26)
[2019-02-28 08:11] VITALS: BP 123/84
[2019-02-28] MEDS: OMEGA-3/DHA/EPA/FISH OIL 500 MG CAPSULE PO SCH (08:19)
[2019-02-28 16:21] VITALS: BP 102/67
[2019-02-28] MEDS: OLANZapine 10 MG RAPDIS TABLET PO SCH (20:49)
[2019-02-28] MEDS: ZOLPIDEM TARTRATE 10 MG TABLET PO PRN (21:22)
[2019-03-01] MEDS: LORazepam 2 MG TABLET PO PRN ×2 (02:40→19:08)
[2019-03-01 02:41] VITALS: BP 122/71
[2019-03-01 08:06] VITALS: BP 112/70
[2019-03-01] MEDS: OMEGA-3/DHA/EPA/FISH OIL 500 MG CAPSULE PO SCH (08:26)
[2019-03-01 16:14] VITALS: BP 102/63
[2019-03-01] MEDS: OLANZapine 10 MG RAPDIS TABLET PO SCH (20:07)
[2019-03-02 03:15] VITALS: BP 104/68
[2019-03-02 08:20] VITALS: BP 106/66
[2019-03-02] MEDS: OMEGA-3/DHA/EPA/FISH OIL 500 MG CAPSULE PO SCH (09:49)
[2019-03-02] MEDS ORDERED: BISACODYL 5 MG EC TABLET PO PRN (10:15)
[2019-03-02] MEDS ORDERED: LORazepam 1 MG TABLET PO PRN (12:00)
[2019-03-02] MEDS: BISACODYL 10 MG RECTAL RECTAL SUPPOSITORY PR PRN ×2 (13:05→17:25)
[2019-03-02 16:02] VITALS: BP 115/70
[2019-03-02] MEDS: OLANZapine 10 MG RAPDIS TABLET PO SCH (20:40)
[2019-03-02] MEDS: ZOLPIDEM TARTRATE 10 MG TABLET PO PRN (21:27)
[2019-03-03 02:26] VITALS: BP 113/73
[2019-03-03] MEDS: OMEGA-3/DHA/EPA/FISH OIL 500 MG CAPSULE PO SCH (08:13)
[2019-03-03 08:47] VITALS: BP 125/64
[2019-03-03] MEDS: BISACODYL 10 MG RECTAL RECTAL SUPPOSITORY PR PRN (13:36)
[2019-03-03] MEDS: DOCUSATE SODIUM 100 MG CAPSULE PO PRN (13:47)
[2019-03-03 16:05] VITALS: BP 117/86
[2019-03-03] MEDS: OLANZapine 10 MG RAPDIS TABLET PO SCH (20:43)
[2019-03-04 02:50] VITALS: BP 143/96
[2019-03-04 08:20] VITALS: BP 136/89
[2019-03-04] MEDS: OMEGA-3/DHA/EPA/FISH OIL 500 MG CAPSULE PO SCH (09:18)
[2019-03-04] MEDS ORDERED: OMEG-50 PO ×2 (11:18→11:19)
== END 2019-03-04 13:20 | disposition home or self-care (01) | DRG 885 ==
LOC: B2S 16:02
PROVIDERS: ADMIT Psychiatry & Neurology Psychiatry; ATTEND Psychiatry & Neurology Psychiatry
DX: F25.1 Schizoaffective disorder, depressive type (principal); R45.851 Suicidal ideations; F10.10 Alcohol abuse, uncomplicated; I10 Essential (primary) hypertension; Y90.9 Presence of alcohol in blood, level not specified; F19.10 Other psychoactive substance abuse, uncomplicated; K59.00 Constipation, unspecified; Z59.0 Homelessness; Z91.5 Personal history of self-harm; Z71.51 Drug abuse counseling and surveillance of drug abuser; Z88.0 Allergy status to penicillin; Z91.018 Allergy to other foods; Z72.0 Tobacco use; Z28.21 Immunization not carried out because of patient refusal
CPT/HCPCS: 83036; 84439; 84443; 87081

== ENCOUNTER 2019-04-16 00:53 | Inpatient (IN) | payer OTHER, MEDICAID ==
[~2019-04-16] VITALS: Ht 167.6 cm; Wt 65.5 kg
[~2019-04-16 00:53] MED LIST changes: -BUPR-93 PO; -FLUO-191 PO; -MUPI22OI2 NASAL; +OMEG-50 PO
[2019-04-16] MEDS ORDERED: HALOPERIDOL LACTATE 5 MG/ML VIAL IM ONE (01:30)
[2019-04-16] MEDS ORDERED: LORazepam 2 MG/ML VIAL IM ONE (01:30)
[2019-04-16] MEDS ORDERED: DiphenhydrAMINE HCL 50 MG/ML VIAL IM ONE (01:30)
[2019-04-16 01:44] LABS: BASOPHILS % (AUTO) 0.5 % (0.0-2.0); EOSINOPHILS % (AUTO) 0 % (1.0-6.0); HEMATOCRIT 41.9 % (36-46); HEMOGLOBIN 14.3 g/dL (12.0-16.0); LYMPHOCYTES # (AUTO) 1.3 K/uL (1.0-4.8); LYMPHOCYTES % (AUTO) 18.6 % (22.0-44.0); MEAN CORPUSCULAR HGB CONC 34.1 G/dL (31.0-37.0); MEAN CORPUSCULAR VOLUME 94 fL (80-100); MONOCYTES # (AUTO) 0.3 K/uL (0.1-1.0); MONOCYTES % (AUTO) 4.2 % (2.0-9.0); NEUTROPHILS # (AUTO) 5.2 K/uL (1.8-7.7); NEUTROPHILS % (AUTO) 76.7 % (40.0-70.0); PLATELET COUNT (AUTO) 287 K/uL (150-450); RED BLOOD CELL COUNT(AUTO) 4.46 MIL/uL (4.00-5.20); RED CELL DISTRIBUTION WIDTH 13.5 % (11.5-14.5)
[2019-04-16 01:53] LABS: ANION GAP 8 mmol/L (8-16); CALCIUM, TOTAL 9.2 mg/dL (8.8-10.5); CARBON DIOXIDE 25 mmol/L (22-29); CHLORIDE 102 mmol/L (98-107); CREATININE 0.91 mg/dL (0.60-1.30); GLOMERULAR FILTR. RATE CALC > 60 mL/min (>60); GLUCOSE,RANDOM 141 mg/dL (70-110); POTASSIUM 3.6 mmol/L (3.5-5.1); SODIUM SERUM 135 mmol/L (136-145); UREA NITROGEN, BLOOD 9 mg/dL (7-18)
[2019-04-16 01:53] LABS: APPEARANCE,URINE CLEAR (CLEAR); BILIRUBIN,URINE NEGATIVE (NEGATIVE); GLUCOSE, URINE (UA) NEGATIVE (NEGATIVE); KETONES,URINE NEGATIVE (NEGATIVE); LEUKOCYTE ESTERASE ,URINE NEGATIVE (NEGATIVE); NITRATE,URINE NEGATIVE (NEGATIVE); OCCULT BLOOD,URINE TRACE (NEGATIVE); PH,URINE 6.5 (5.0-8.0); PROTEIN,URINE NEGATIVE (NEGATIVE); UROBILINOGEN,URINE 0.2 mg/dL (<=1.0)
[2019-04-16 01:59] LABS: ALANINE AMINOTRANSFERASE 27 U/L (12-78); ALBUMIN 3.9 g/dL (3.4-5.0); ALKALINE PHOSPHATASE 71 U/L (46-116); ASPARTATE AMINOTRANSFERASE 33 U/L (15-37); BILIRUBIN,TOTAL 0.3 mg/dL (0.1-1.0); TOTAL PROTEIN, SERUM 7.4 g/dL (6.4-8.2)
[2019-04-16 02:00] LABS: AMPHET/METH SCREEN,URINE NEGATIVE (NEGATIVE); BARBITURATE SCREEN, URINE NEGATIVE (NEGATIVE); BENZODIAZEPINES SCREEN,URINE NEGATIVE (NEGATIVE); CANNABINOID SCREEN,URINE NEGATIVE (NEGATIVE); COCAINE SCREEN,URINE NEGATIVE (NEGATIVE); METHADONE SCREEN, URINE NEGATIVE (NEGATIVE); OPIATE SCREEN,URINE NEGATIVE (NEGATIVE)
[2019-04-16 02:01] LABS: PHENCYCLIDINE SCREEN,URINE NEGATIVE (NEGATIVE)
[2019-04-16 02:05] LABS: BACTERIA,URINE None Seen /HPF (None Seen); RBC,URINE 0-2 /HPF (0-2); SQUAMOUS EPITHELIAL CELL,UR Rare /LPF (None Seen); WBC,URINE None Seen /HPF (0-5)
[2019-04-16 02:58] LABS: SALICYLATE 7.3 mg/dL (2.8-20.0)
[2019-04-16 03:14] LABS: ACETAMINOPHEN < 2 mcg/mL (10-30)
[2019-04-16] MEDS ORDERED: QUEtiapine FUMARATE 100 MG TABLET PO PRN (04:15)
[2019-04-16 06:11] VITALS: BP 122/90
[2019-04-16] MEDS ORDERED: INFLUENZA VIRUS VACCINE QVS 2019-20 (3YR+)/PF 60 MCG/0.5 ML SYRINGE IM ONE (07:00)
[2019-04-16] MEDS ORDERED: CloNIDine HCL 0.1 MG TABLET PO PRN (07:30)
[2019-04-16] MEDS ORDERED: HydrOXYzine PAMOATE 50 MG CAPSULE PO PRN (12:15)
[2019-04-16] MEDS ORDERED: TUBERCULIN, PURIFIED PROTEIN DERIVATIVE 5 TU/0.1 ML SYRINGE ID ONE (12:15)
[2019-04-16] MEDS ORDERED: PROMETHAZINE HCL 25 MG TABLET PO PRN (12:15)
[2019-04-16] MEDS ORDERED: OLANZapine 5 MG RAPDIS TABLET PO PRN (12:15)
[2019-04-16] MEDS ORDERED: MAG HYDROX/AL HYDROX/SIMETH ES 30 ML SUSPENSION UDCUP PO PRN (12:15)
[2019-04-16] MEDS ORDERED: ACETAMINOPHEN 325 MG TABLET PO PRN (12:15)
[2019-04-16] MEDS ORDERED: MAGNESIUM HYDROXIDE SUSPENSION 30 ML UDCUP PO PRN (12:15)
[2019-04-16] MEDS ORDERED: GuaiFENesin/D-METHORPHAN [SUGAR-FREE] 200-20MG/10 ML SYRUP UDCUP PO PRN (12:15)
[2019-04-16] MEDS ORDERED: LOPERAMIDE HCL 2 MG CAPSULE PO PRN (12:15)
[2019-04-16] MEDS: THIAMINE HCL 100 MG TABLET PO SCH (16:24)
[2019-04-16 16:53] VITALS: BP 113/57
[2019-04-16] MEDS ORDERED: OLANZapine 5 MG RAPDIS TABLET PO SCH (21:00)
[2019-04-17 02:51] VITALS: BP 124/72
[2019-04-17] MEDS ORDERED: NALT50TA6 PO (06:41)
[2019-04-17] MEDS ORDERED: FLUO-191 PO (06:41)
[2019-04-17 08:26] VITALS: BP 111/67
[2019-04-17] MEDS: THIAMINE HCL 100 MG TABLET PO SCH ×2 (08:43→17:25)
[2019-04-17] MEDS: NALTREXONE HCL 50 MG TABLET PO SCH (08:43)
[2019-04-17] MEDS: FOLIC ACID 1 MG TABLET PO SCH (08:43)
[2019-04-17] MEDS: MULTIVITAMINS WITH MINERALS, THERAPEUTIC TABLET PO SCH (08:43)
[2019-04-17] MEDS: FLUoxetine HCL 20 MG CAPSULE PO SCH (08:43)
[2019-04-17] MEDS: LORazepam 2 MG TABLET PO PRN (12:05)
[2019-04-17 16:48] VITALS: BP 108/60
[2019-04-17] MEDS: OLANZapine 10 MG TABLET PO SCH (21:11)
[2019-04-17] MEDS: OLANZapine 2.5 MG TABLET PO SCH (22:22)
[2019-04-18] MEDS: ZOLPIDEM TARTRATE 10 MG TABLET PO PRN (02:05)
[2019-04-18 02:16] VITALS: BP 127/89
[2019-04-18] MEDS: FLUoxetine HCL 20 MG CAPSULE PO SCH (08:20)
[2019-04-18] MEDS: FOLIC ACID 1 MG TABLET PO SCH (08:20)
[2019-04-18] MEDS: THIAMINE HCL 100 MG TABLET PO SCH ×2 (08:20→18:00)
[2019-04-18] MEDS: MULTIVITAMINS WITH MINERALS, THERAPEUTIC TABLET PO SCH (08:21)
[2019-04-18] MEDS: NALTREXONE HCL 50 MG TABLET PO SCH (08:21)
[2019-04-18 08:27] VITALS: BP 124/69
[2019-04-18 09:04] LABS: HEMOGLOBIN A1C 5.2 % (3.8-5.6)
[2019-04-18 10:01] LABS: CHOL/HDL RATIO 3.1 (3.9-5.7); FREE T4 (FREE THYROXINE) 0.96 ng/dL (0.76-1.46); THYROID STIMULATING HORMONE 0.83 uIU/mL (0.36-3.74)
[2019-04-18] MEDS: LORazepam 2 MG TABLET PO PRN ×2 (12:44→21:01)
[2019-04-18] MEDS ORDERED: NALT50TA PO (13:59)
[2019-04-18] MEDS ORDERED: OLAN2.5T29 PO (13:59)
[2019-04-18] MEDS ORDERED: FLUO-191 PO (13:59)
[2019-04-18] MEDS ORDERED: OLAN10TA20 PO (13:59)
[2019-04-18 17:10] VITALS: BP 131/99
[2019-04-18 17:11] VITALS: BP 131/70
[2019-04-18] MEDS: OLANZapine 2.5 MG TABLET PO SCH (21:01)
[2019-04-18] MEDS: OLANZapine 10 MG TABLET PO SCH (21:01)
[2019-04-19 05:12] VITALS: BP 125/66
[2019-04-19 08:26] VITALS: BP 119/72
[2019-04-19] MEDS: FOLIC ACID 1 MG TABLET PO SCH (09:00)
[2019-04-19] MEDS: THIAMINE HCL 100 MG TABLET PO SCH ×2 (09:00→16:33)
[2019-04-19] MEDS: MULTIVITAMINS WITH MINERALS, THERAPEUTIC TABLET PO SCH (09:01)
[2019-04-19] MEDS: NALTREXONE HCL 50 MG TABLET PO SCH (09:01)
[2019-04-19] MEDS: FLUoxetine HCL 20 MG CAPSULE PO SCH (09:01)
[2019-04-19] MEDS: LORazepam 2 MG TABLET PO PRN ×3 (12:29→21:04)
[2019-04-19 16:49] VITALS: BP 124/68
[2019-04-19] MEDS: OLANZapine 2.5 MG TABLET PO SCH (21:04)
[2019-04-19] MEDS: OLANZapine 10 MG TABLET PO SCH (21:04)
[2019-04-20] VITALS (8 sets, daily range): BP systolic 100–130; BP diastolic 54–83
[2019-04-20] MEDS: NALTREXONE HCL 50 MG TABLET PO SCH (08:51)
[2019-04-20] MEDS: MULTIVITAMINS WITH MINERALS, THERAPEUTIC TABLET PO SCH (08:51)
[2019-04-20] MEDS: FOLIC ACID 1 MG TABLET PO SCH (08:51)
[2019-04-20] MEDS: THIAMINE HCL 100 MG TABLET PO SCH ×2 (08:51→17:06)
[2019-04-20] MEDS: FLUoxetine HCL 20 MG CAPSULE PO SCH (08:51)
[2019-04-20] MEDS: LORazepam 2 MG TABLET PO PRN ×2 (10:45→20:47)
[2019-04-20] MEDS: OLANZapine 10 MG TABLET PO SCH (20:06)
[2019-04-20] MEDS: OLANZapine 2.5 MG TABLET PO SCH (20:06)
[2019-04-21 05:14] VITALS: BP 124/76
[2019-04-21 08:15] VITALS: BP 100/54
[2019-04-21] MEDS: THIAMINE HCL 100 MG TABLET PO SCH ×2 (08:30→16:18)
[2019-04-21] MEDS: NALTREXONE HCL 50 MG TABLET PO SCH (08:30)
[2019-04-21] MEDS: FOLIC ACID 1 MG TABLET PO SCH (08:30)
[2019-04-21] MEDS: FLUoxetine HCL 20 MG CAPSULE PO SCH (08:30)
[2019-04-21] MEDS: MULTIVITAMINS WITH MINERALS, THERAPEUTIC TABLET PO SCH (08:30)
[2019-04-21 10:30] VITALS: BP 114/72
[2019-04-21 16:32] VITALS: BP 100/71
[2019-04-21] MEDS: OLANZapine 10 MG TABLET PO SCH (20:11)
[2019-04-21] MEDS: OLANZapine 2.5 MG TABLET PO SCH (20:11)
[2019-04-21] MEDS: LORazepam 2 MG TABLET PO PRN (20:49)
[2019-04-21] MEDS: ZOLPIDEM TARTRATE 10 MG TABLET PO PRN (21:58)
[2019-04-22 05:36] VITALS: BP 104/74
[2019-04-22 08:22] VITALS: BP 100/64
[2019-04-22] MEDS: NALTREXONE HCL 50 MG TABLET PO SCH (08:28)
[2019-04-22] MEDS: FLUoxetine HCL 20 MG CAPSULE PO SCH (08:28)
[2019-04-22] MEDS: FOLIC ACID 1 MG TABLET PO SCH (08:28)
[2019-04-22] MEDS: MULTIVITAMINS WITH MINERALS, THERAPEUTIC TABLET PO SCH (08:28)
[2019-04-22] MEDS: THIAMINE HCL 100 MG TABLET PO SCH (08:28)
== END 2019-04-22 15:20 | disposition home or self-care (01) | DRG 885 ==
LOC: EMS 00:53 → B3A 04:19
PROVIDERS: ADMIT Psychiatry & Neurology Psychiatry; ATTEND Psychiatry & Neurology Psychiatry
DX: F25.9 Schizoaffective disorder, unspecified (principal); F12.90 Cannabis use, unspecified, uncomplicated; F17.210 Nicotine dependence, cigarettes, uncomplicated; Z91.19 Patient's noncompliance with other medical treatment and regimen; Z59.0 Homelessness; Z63.9 Problem related to primary support group, unspecified; Z88.0 Allergy status to penicillin; Z91.010 Allergy to peanuts
CPT/HCPCS: 83036; 84439; 84443; 86592; 93005; 99291; G0480; G0481

== ENCOUNTER 2020-01-02 13:39 | Emergency (ER) | payer MEDICARE, MEDICAID ==
[~2020-01-02] VITALS: Ht 172.7 cm; Wt 61.4 kg
[~2020-01-02 13:39] MED LIST changes: +FLUO-191 PO; +NALT50TA PO; +OLAN10TA20 PO; -OLAN10TA6 PO; +OLAN2.5T29 PO; -OMEG-50 PO
[2020-01-02] MEDS ORDERED: PALI234D IM (13:58)
[2020-01-02 14:56] VITALS: BP 126/81
== END 2020-01-02 15:56 | disposition home or self-care (01) ==
LOC: EMS 13:47
DX: K58.9 Irritable bowel syndrome, unspecified (principal); K59.00 Constipation, unspecified; F20.9 Schizophrenia, unspecified; F17.210 Nicotine dependence, cigarettes, uncomplicated
CPT/HCPCS: Z7502

== ENCOUNTER 2020-09-19 12:38 | Emergency (ER) | payer MEDICARE, MEDICAID ==
[~2020-09-19] VITALS: Ht 167.6 cm; Wt 68.2 kg
[~2020-09-19 12:38] MED LIST changes: -FLUO-191 PO; -NALT50TA PO; -OLAN10TA20 PO; -OLAN2.5T29 PO; +PALI234D IM
[2020-09-19] MEDS ORDERED: DIPH25CA85 PO (13:04)
[2020-09-19] MEDS ORDERED: OLAN7.5T22 PO (13:04)
[2020-09-19 14:00] VITALS: BP 132/96
== END 2020-09-19 14:10 | disposition home or self-care (01) ==
LOC: EMS 12:40
DX: K59.00 Constipation, unspecified (principal); F20.9 Schizophrenia, unspecified; Z88.0 Allergy status to penicillin; Z91.010 Allergy to peanuts; Z79.899 Other long term (current) drug therapy
CPT/HCPCS: 99282; Z7502

== ENCOUNTER 2020-10-12 18:43 | Emergency (ER) | payer MEDICARE, MEDICAID ==
[~2020-10-12] VITALS: Ht 170.2 cm; Wt 68.2 kg
[~2020-10-12 18:43] MED LIST changes: +DIPH25CA85 PO; +OLAN7.5T22 PO
[2020-10-12 19:00] VITALS: BP 122/76
[2020-10-12 20:13] LABS: BASOPHILS % (AUTO) 0.2 % (0.0-2.0); EOSINOPHILS % (AUTO) 0 % (1.0-6.0); HEMATOCRIT 40.6 % (36-46); HEMOGLOBIN 13.8 g/dL (12.0-16.0); LYMPHOCYTES % (AUTO) 27.2 % (22.0-44.0); MEAN CORPUSCULAR VOLUME 94 fL (80-100); MONOCYTES # (AUTO) 0.5 K/uL (0.1-1.0); MONOCYTES % (AUTO) 6.5 % (2.0-9.0); NEUTROPHILS # (AUTO) 4.9 K/uL (1.8-7.7); NEUTROPHILS % (AUTO) 66.1 % (40.0-70.0); PLATELET COUNT (AUTO) 284 K/uL (150-450); RED BLOOD CELL COUNT(AUTO) 4.31 MIL/uL (4.00-5.20); RED CELL DISTRIBUTION WIDTH 14.6 % (11.5-14.5)
[2020-10-12 20:24] LABS: ANION GAP 8 mmol/L (8-16); CALCIUM, TOTAL 8.7 mg/dL (8.8-10.5); CARBON DIOXIDE 29 mmol/L (22-29); CHLORIDE 101 mmol/L (98-107); CREATININE 0.76 mg/dL (0.60-1.30); GLOMERULAR FILTR. RATE CALC > 60 mL/min (>60); GLUCOSE,RANDOM 84 mg/dL (70-110); POTASSIUM 4.1 mmol/L (3.5-5.1); SODIUM SERUM 138 mmol/L (136-145); UREA NITROGEN, BLOOD 9 mg/dL (7-18)
[2020-10-12 20:31] LABS: ALANINE AMINOTRANSFERASE 17 U/L (12-78); ALBUMIN 3.9 g/dL (3.4-5.0); ALKALINE PHOSPHATASE 71 U/L (46-116); ASPARTATE AMINOTRANSFERASE 12 U/L (15-37); BILIRUBIN,TOTAL 0.2 mg/dL (0.1-1.0); LIPASE 135 U/L (73-393); TOTAL PROTEIN, SERUM 6.8 g/dL (6.4-8.2)
== END 2020-10-12 21:23 | disposition left against medical advice (07) ==
LOC: EMS 18:48
DX: K59.00 Constipation, unspecified (principal); N13.30 Unspecified hydronephrosis; F17.210 Nicotine dependence, cigarettes, uncomplicated; F20.9 Schizophrenia, unspecified; Z79.899 Other long term (current) drug therapy; Z88.0 Allergy status to penicillin; Z91.010 Allergy to peanuts
CPT/HCPCS: 74176; 80053; 83690; 85025; 99284

== ENCOUNTER 2021-09-26 11:14 | Emergency (ER) | payer MEDICARE, MEDICAID ==
[~2021-09-26] VITALS: Ht 167.6 cm; Wt 68.2 kg
[2021-09-26 11:18] VITALS: BP 170/100
[2021-09-26] MEDS ORDERED: TRAZ-252 PO (11:21)
[2021-09-26] MEDS ORDERED: QUET25TA PO (11:21)
[2021-09-26] MEDS ORDERED: NA P133E8 PR (12:58)
== END 2021-09-26 13:04 | disposition home or self-care (01) ==
LOC: EMS 11:14
DX: K59.00 Constipation, unspecified (principal); F32.A Depression, unspecified; F20.9 Schizophrenia, unspecified; F17.210 Nicotine dependence, cigarettes, uncomplicated; Z98.890 Other specified postprocedural states; Z88.0 Allergy status to penicillin; Z91.010 Allergy to peanuts
CPT/HCPCS: 99282; Z7502

== ENCOUNTER 2024-06-27 16:40 | Inpatient (IN) | payer MEDICARE, MEDICAID ==
[~2024-06-27] VITALS: Ht 172.7 cm; Wt 64.4 kg
[~2024-06-27 16:40] MED LIST changes: +NA P133E8 PR; +QUET25TA PO; +TRAZ-252 PO
[2024-06-27 17:07] LABS: COVID AG,FIA SOURCE NASAL SWAB
[2024-06-27 17:13] LABS: BASOPHILS % (AUTO) 0.2 % (0.0-2.0); EOSINOPHILS % (AUTO) 0 % (1.0-6.0); HEMOGLOBIN 15.2 g/dL (12.0-16.0); MEAN CORPUSCULAR HGB CONC 33.8 G/dL (31.0-37.0); MONOCYTES # (AUTO) 0.4 K/uL (0.1-1.0)
[2024-06-27 17:14] LABS: CALCIUM, TOTAL 8.7 mg/dL (8.8-10.5); CHLORIDE 98 mmol/L (98-107); CREATININE 0.69 mg/dL (0.60-1.30); GLOMERULAR FILTR. RATE CALC > 60 mL/min (>60); GLUCOSE,RANDOM 89 mg/dL (70-110); POTASSIUM 3.8 mmol/L (3.5-5.1); SODIUM SERUM 134 mmol/L (136-145); UREA NITROGEN, BLOOD 9 mg/dL (7-18)
[2024-06-27 17:23] LABS: ANION GAP 5 mmol/L (8-16); CARBON DIOXIDE 31 mmol/L (22-29); LYMPHOCYTES # (AUTO) 2.1 K/uL (1.0-4.8); LYMPHOCYTES % (AUTO) 33.5 % (22.0-44.0); MEAN CORPUSCULAR VOLUME 92 fL (80-100); NEUTROPHILS # (AUTO) 3.8 K/uL (1.8-7.7); NEUTROPHILS % (AUTO) 60.3 % (40.0-70.0); PLATELET COUNT (AUTO) 304 K/uL (150-450); WHITE BLOOD COUNT (AUTO) 6.3 K/uL (4.5-11.0)
[2024-06-27 17:29] LABS: SARS-COV2 (COVID) ANTIGEN,FIA Negative (Negative)
[2024-06-27 17:57] LABS: ALCOHOL, URINE DRUG SCREEN NEGATIVE (NEGATIVE); AMPHET/METH SCREEN,URINE POSITIVE (NEGATIVE); BARBITURATE SCREEN, URINE NEGATIVE (NEGATIVE); BENZODIAZEPINES SCREEN,URINE NEGATIVE (NEGATIVE); CANNABINOID SCREEN,URINE NEGATIVE (NEGATIVE); COCAINE SCREEN,URINE NEGATIVE (NEGATIVE); METHADONE SCREEN, URINE NEGATIVE (NEGATIVE); OPIATE SCREEN,URINE NEGATIVE (NEGATIVE); PHENCYCLIDINE SCREEN,URINE NEGATIVE (NEGATIVE)
[2024-06-27] MEDS ORDERED: haloperidoL 5 MG TABLET PO PRN (18:45)
[2024-06-27] MEDS: ZOLPIDEM TARTRATE 10 MG TABLET PO PRN (20:14)
[2024-06-27 23:45] VITALS: O2SAT 99
[2024-06-28] MEDS: LORazepam 2 MG TABLET PO PRN (01:04)
[2024-06-28 01:10] VITALS: BP 181/104; PULSE 89; RESP 18; TEMP 96.6; O2SAT 98
[2024-06-28 02:02] VITALS: BP_SYST 131; BP_SYST 181; BP_DIAS 104; BP_DIAS 61; PULSE 74; PULSE 89; RESP 18; TEMP 96.6; O2SAT 97; O2SAT 98
[2024-06-28] MEDS ORDERED: ACETAMINOPHEN 325 MG TABLET PO PRN (07:00)
[2024-06-28] MEDS ORDERED: ALBUTEROL SULFATE HFA 90 MCG/PUFF 8 GM INHALER IH PRN (07:00)
[2024-06-28] MEDS ORDERED: BENZOCAINE/MENTHOL [CEPACOL] LOZENGE PO PRN (07:00)
[2024-06-28] MEDS ORDERED: ONDANSETRON 4 MG TABLET PO PRN (07:00)
[2024-06-28] MEDS ORDERED: LOPERAMIDE HCL 2 MG CAPSULE PO PRN (07:00)
[2024-06-28] MEDS ORDERED: PETROLATUM,WHITE 28 GM JELLY TP PRN (07:00)
[2024-06-28] MEDS ORDERED: MAG HYDROX/ALUMINUM HYD/SIMETH ES 30 ML SUSPENSION UDCUP PO PRN (07:00)
[2024-06-28] MEDS ORDERED: OMEPRAZOLE 20 MG CAPSULE PO PRN (07:00)
[2024-06-28] MEDS ORDERED: IBUPROFEN 600 MG TABLET PO PRN (07:00)
[2024-06-28] MEDS ORDERED: BACITRACIN 28 GM OINTMENT TP PRN (07:00)
[2024-06-28] MEDS ORDERED: DOCUSATE SODIUM 100 MG CAPSULE PO PRN (07:00)
[2024-06-28] MEDS: METOPROLOL TARTRATE 25 MG TABLET PO SCH (08:53)
[2024-06-28] MEDS: NICOTINE 21 MG/24 HOUR PATCH TD SCH (08:53)
[2024-06-28 09:35] VITALS: BP 169/108; PULSE 99; RESP 18; TEMP 97.3; O2SAT 100
[2024-06-28 10:48] VITALS: BP 138/78; RESP 18
[2024-06-28] MEDS: MAGNESIUM HYDROXIDE SUSPENSION 30 ML UDCUP PO PRN (15:09)
[2024-06-28] MEDS: QUEtiapine FUMARATE 100 MG TABLET PO SCH (20:07)
[2024-06-28 20:20] VITALS: BP 140/91; PULSE 78; RESP 17; TEMP 97.9; O2SAT 97
[2024-06-29] MEDS ORDERED: QUET100T34 PO (13:28)
[2024-06-29] MEDS: LINACLOTIDE 145 MCG CAPSULE PO PRN (16:11)
[2024-06-30 02:14] VITALS: BP 164/104; PULSE 68; RESP 18; TEMP 97.8; O2SAT 100
[2024-06-30 09:44] VITALS: BP 172/102; PULSE 82; RESP 18; TEMP 97.7; O2SAT 94
[2024-06-30] MEDS: TERBINAFINE HCL 1% 30 GM CREAM TP SCH (10:37)
[2024-06-30 20:36] VITALS: BP 165/95; PULSE 76; RESP 18; TEMP 97.5
[2024-06-30 20:51] VITALS: BP 188/102; PULSE 65; RESP 18
[2024-06-30] MEDS: CloNIDine HCL 0.1 MG TABLET PO PRN (20:51)
[2024-06-30 22:29] VITALS: BP 188/111; PULSE 65; RESP 18
[2024-06-30] MEDS: lisinopriL 20 MG TABLET PO SCH (22:29)
[2024-07-01 00:31] VITALS: BP_SYST 178; BP_SYST 180; BP_DIAS 98; PULSE 65; RESP 18; O2SAT 100
[2024-07-01] MEDS: CloNIDine HCL 0.1 MG TABLET PO ONE (00:50)
[2024-07-01 02:00] VITALS: BP 144/83; PULSE 84; RESP 16; TEMP 97.7; O2SAT 98
[2024-07-01 08:17] VITALS: BP 128/76; PULSE 78; RESP 16; TEMP 98.6; O2SAT 99
[2024-07-01 22:31] VITALS: BP 199/91; PULSE 65; RESP 17
[2024-07-01 23:37] VITALS: BP 160/80; PULSE 63; RESP 16; O2SAT 100
[2024-07-02 05:30] VITALS: BP 162/84; RESP 17
[2024-07-02 08:11] VITALS: RESP 18
[2024-07-02 08:30] VITALS: BP 156/67; PULSE 63; RESP 16; TEMP 97.7; O2SAT 95
[2024-07-02 21:13] VITALS: BP 159/79; PULSE 60; RESP 16; TEMP 97.5; O2SAT 99
[2024-07-03 08:19] VITALS: RESP 18
[2024-07-03 16:24] VITALS: BP 155/78; PULSE 69; RESP 18; TEMP 97.8
[2024-07-03 20:33] VITALS: BP 130/64; PULSE 67; RESP 17; TEMP 97.5; O2SAT 96
[2024-07-04 08:15] VITALS: BP 128/74; PULSE 83; RESP 18; TEMP 98; O2SAT 97
[2024-07-04 10:58] LABS: APPEARANCE,URINE HAZY (CLEAR); BILIRUBIN,URINE NEGATIVE (NEGATIVE); COLOR,URINE YELLOW (YELLOW); GLUCOSE, URINE (UA) NEGATIVE (NEGATIVE); KETONES,URINE NEGATIVE (NEGATIVE); LEUKOCYTE ESTERASE ,URINE NEGATIVE (NEGATIVE); NITRATE,URINE NEGATIVE (NEGATIVE); OCCULT BLOOD,URINE NEGATIVE (NEGATIVE); PH,URINE 6.5 (5.0-8.0); PROTEIN,URINE NEGATIVE (NEGATIVE); SPECIFIC GRAVITIY, URINE 1.021 (1.003-1.030); UROBILINOGEN,URINE <=1.0 mg/dL (<=1.0)
[2024-07-04 11:04] LABS: BACTERIA,URINE None Seen /HPF (None Seen); RBC,URINE None Seen /HPF (0-2); WBC,URINE None Seen /HPF (0-5)
[2024-07-04 20:36] VITALS: BP 164/79; PULSE 65; RESP 18; TEMP 97.6; O2SAT 98
[2024-07-05 09:07] VITALS: BP 136/84; PULSE 73; RESP 19; TEMP 97.2; O2SAT 100
[2024-07-05] MEDS ORDERED: METO25 PO (12:24)
[2024-07-05] MEDS ORDERED: LISI-894 PO (12:24)
[2024-07-05] MEDS ORDERED: QUET100T34 PO (12:24)
== END 2024-07-05 18:36 | disposition home or self-care (01) | DRG 885 ==
LOC: EMS 16:40 → B2S 23:31 → B3A 06-30 18:18
PROVIDERS: ADMIT Psychiatry & Neurology Psychiatry; ATTEND Psychiatry & Neurology Psychiatry
PROC: GZHZZZZ Group Psychotherapy (ICD-10-PCS; principal; 2024-06-28)
PROC: GZ52ZZZ Individual Psychotherapy, Cognitive (ICD-10-PCS; 2024-07-02)
DX: F25.1 Schizoaffective disorder, depressive type (principal); F15.10 Other stimulant abuse, uncomplicated; F17.210 Nicotine dependence, cigarettes, uncomplicated; F41.9 Anxiety disorder, unspecified; G47.00 Insomnia, unspecified; Z20.822 Contact with and (suspected) exposure to COVID-19; F10.10 Alcohol abuse, uncomplicated; K59.00 Constipation, unspecified; I10 Essential (primary) hypertension; Z79.899 Other long term (current) drug therapy; Z88.0 Allergy status to penicillin; Z91.010 Allergy to peanuts; Z71.6 Tobacco abuse counseling
CPT/HCPCS: 80048; 80307; 81001; 85025; G0480

== ENCOUNTER 2024-10-19 07:30 | Inpatient (IN) | payer MEDICARE, MEDICAID ==
[~2024-10-19] VITALS: Ht 172.7 cm; Wt 59.9 kg
[~2024-10-19 07:30] MED LIST changes: -DIPH25CA85 PO; +LISI-894 PO; +METO25 PO; -NA P133E8 PR; -OLAN7.5T22 PO; +QUET100T34 PO; -QUET25TA PO; -TRAZ-252 PO
[2024-10-19 09:16] LABS: COVID AG,FIA SOURCE NASAL SWAB
[2024-10-19 09:34] LABS: PLATELET COUNT (AUTO) 287 K/uL (150-450); RED BLOOD CELL COUNT(AUTO) 4.47 MIL/uL (4.00-5.20); RED CELL DISTRIBUTION WIDTH 13.7 % (11.5-14.5); WHITE BLOOD COUNT (AUTO) 5.2 K/uL (4.5-11.0)
[2024-10-19 09:38] LABS: CALCIUM, TOTAL 8.6 mg/dL (8.8-10.5); CREATININE 0.56 mg/dL (0.60-1.30); GLOMERULAR FILTR. RATE CALC > 60 mL/min (>60); GLUCOSE,RANDOM 95 mg/dL (70-110); SODIUM SERUM 137 mmol/L (136-145); UREA NITROGEN, BLOOD 11 mg/dL (7-18)
[2024-10-19 09:42] LABS: ASPARTATE AMINOTRANSFERASE 22 U/L (15-37); TOTAL PROTEIN, SERUM 6.6 g/dL (6.4-8.2)
[2024-10-19 09:51] LABS: SARS-COV2 (COVID) ANTIGEN,FIA Negative (Negative)
[2024-10-19] MEDS ORDERED: ZOLPIDEM TARTRATE 10 MG TABLET PO PRN (10:00)
[2024-10-19 10:10] LABS: ALCOHOL, BLOOD (SERUM) < 3 mg/dL (0-10)
[2024-10-19 10:39] LABS: APPEARANCE,URINE CLEAR (CLEAR); GLUCOSE, URINE (UA) NEGATIVE (NEGATIVE); LEUKOCYTE ESTERASE ,URINE NEGATIVE (NEGATIVE); NITRATE,URINE NEGATIVE (NEGATIVE); OCCULT BLOOD,URINE TRACE (NEGATIVE); PH,URINE DRUG SCREEN 6.5 (5.0-8.0); SPECIFIC GRAVITIY, URINE 1.016 (1.003-1.030)
[2024-10-19 10:49] LABS: ALCOHOL, URINE DRUG SCREEN NEGATIVE (NEGATIVE); AMPHET/METH SCREEN,URINE NEGATIVE (NEGATIVE); BARBITURATE SCREEN, URINE NEGATIVE (NEGATIVE); CANNABINOID SCREEN,URINE NEGATIVE (NEGATIVE); COCAINE SCREEN,URINE NEGATIVE (NEGATIVE); METHADONE SCREEN, URINE NEGATIVE (NEGATIVE)
[2024-10-19 11:30] VITALS: O2SAT 99
[2024-10-19 11:33] LABS: SQUAMOUS EPITHELIAL CELL,UR None Seen /LPF (None Seen)
[2024-10-19] MEDS ORDERED: ACETAMINOPHEN 325 MG TABLET PO PRN (16:15)
[2024-10-19] MEDS ORDERED: ALBUTEROL SULFATE HFA 90 MCG/PUFF 8 GM INHALER IH PRN (16:15)
[2024-10-19] MEDS ORDERED: GuaiFENesin/D-METHORPHAN [SUGAR-FREE] 200-20MG/10 ML SYRUP UDCUP PO PRN (16:15)
[2024-10-19] MEDS ORDERED: ONDANSETRON 4 MG TABLET PO PRN (16:15)
[2024-10-19] MEDS ORDERED: MAGNESIUM HYDROXIDE SUSPENSION 30 ML UDCUP PO PRN (16:15)
[2024-10-19] MEDS ORDERED: DOCUSATE SODIUM 100 MG CAPSULE PO PRN (16:15)
[2024-10-19] MEDS ORDERED: LOPERAMIDE HCL 2 MG CAPSULE PO PRN (16:15)
[2024-10-19] MEDS ORDERED: NICOTINE 14 MG/24 HOUR PATCH TD PRN (16:15)
[2024-10-19] MEDS ORDERED: MAG HYDROX/ALUMINUM HYD/SIMETH ES 30 ML SUSPENSION UDCUP PO PRN (16:15)
[2024-10-19] MEDS ORDERED: PETROLATUM,WHITE 28 GM JELLY TP PRN (16:15)
[2024-10-19] MEDS ORDERED: IBUPROFEN 400 MG TABLET PO PRN (16:15)
[2024-10-19] MEDS: METOPROLOL TARTRATE 25 MG TABLET PO SCH (17:37)
[2024-10-19 20:25] VITALS: BP 125/69; PULSE 79; RESP 16; TEMP 98.9; O2SAT 98
[2024-10-20 08:46] VITALS: BP 142/94; PULSE 81; RESP 19; TEMP 97.7; O2SAT 98
[2024-10-20 09:08] LABS: PLATELET COUNT (AUTO) 306 K/uL (150-450); RED BLOOD CELL COUNT(AUTO) 4.45 MIL/uL (4.00-5.20); RED CELL DISTRIBUTION WIDTH 13.6 % (11.5-14.5); WHITE BLOOD COUNT (AUTO) 5.0 K/uL (4.5-11.0)
[2024-10-20 09:32] LABS: ASPARTATE AMINOTRANSFERASE 20 U/L (15-37); CALCIUM, TOTAL 8.5 mg/dL (8.8-10.5); CREATININE 0.77 mg/dL (0.60-1.30); GLOMERULAR FILTR. RATE CALC > 60 mL/min (>60); GLUCOSE,RANDOM 132 mg/dL (70-110); SODIUM SERUM 134 mmol/L (136-145); TOTAL PROTEIN, SERUM 6.9 g/dL (6.4-8.2); UREA NITROGEN, BLOOD 13 mg/dL (7-18)
[2024-10-20 09:44] LABS: CHOL/HDL RATIO 2.6 (3.9-5.7); LDL CHOL (CALC.) 90.0 mg/dL (0-130)
[2024-10-20 21:21] VITALS: RESP 16
[2024-10-21 08:23] VITALS: BP 149/100; PULSE 83; RESP 17; TEMP 97.1; O2SAT 95
[2024-10-21 09:31] LABS: PH,URINE DRUG SCREEN 6.5 (5.0-8.0)
[2024-10-21 10:14] LABS: ALCOHOL, URINE DRUG SCREEN NEGATIVE (NEGATIVE); AMPHET/METH SCREEN,URINE NEGATIVE (NEGATIVE); BARBITURATE SCREEN, URINE NEGATIVE (NEGATIVE); CANNABINOID SCREEN,URINE NEGATIVE (NEGATIVE); COCAINE SCREEN,URINE NEGATIVE (NEGATIVE); METHADONE SCREEN, URINE NEGATIVE (NEGATIVE)
[2024-10-21 13:17] VITALS: BP 150/73; PULSE 61; RESP 17; TEMP 97.2; O2SAT 100
[2024-10-21 20:15] VITALS: BP 113/75; PULSE 69; RESP 20; TEMP 98; O2SAT 99
[2024-10-22 08:44] VITALS: BP 140/74; PULSE 72; RESP 19; TEMP 97.9; O2SAT 98
[2024-10-22 20:23] VITALS: BP 123/80; PULSE 71; RESP 19; TEMP 97.8; O2SAT 99
[2024-10-23 08:38] VITALS: BP 155/90; PULSE 65; RESP 17; TEMP 97.9; O2SAT 99
[2024-10-23 16:55] VITALS: BP 160/89; PULSE 69; RESP 18
[2024-10-23 20:21] VITALS: BP 142/72; PULSE 69; RESP 18; TEMP 97.7; O2SAT 98
[2024-10-24 08:27] VITALS: BP 146/92; PULSE 75; RESP 18; TEMP 98.2; O2SAT 98
[2024-10-24 20:24] VITALS: BP 145/85; PULSE 66; RESP 18; TEMP 97.8; O2SAT 98
[2024-10-25 08:44] VITALS: BP 127/93; PULSE 80; RESP 17; TEMP 97.5; O2SAT 99
[2024-10-26 01:57] VITALS: BP 116/99; PULSE 67; RESP 16; TEMP 99; O2SAT 99
[2024-10-26 08:18] VITALS: BP 140/112; PULSE 85; RESP 19; TEMP 98.1; O2SAT 100
[2024-10-26 20:24] VITALS: RESP 18
[2024-10-27 07:31] VITALS: BP 138/77; PULSE 77; RESP 18; TEMP 98.6; O2SAT 100
[2024-10-27 09:01] VITALS: BP 138/77; PULSE 77; RESP 18; TEMP 98.6; O2SAT 100
[2024-10-27 20:06] VITALS: BP 132/72; PULSE 74; RESP 18; TEMP 98.2; O2SAT 99
[2024-10-28 08:37] VITALS: BP 141/89; PULSE 77; RESP 18; TEMP 98.2; O2SAT 97
[2024-10-28 16:16] VITALS: BP 166/105; PULSE 86; RESP 18
[2024-10-28 17:06] VITALS: BP 189/106; PULSE 60; RESP 18
[2024-10-28 18:05] VITALS: BP 127/67; PULSE 62; RESP 18
[2024-10-28 20:56] VITALS: RESP 18
[2024-10-29 08:37] VITALS: BP 150/93; PULSE 77; RESP 17; TEMP 97.5; O2SAT 97
[2024-10-29 16:28] VITALS: BP 167/92; PULSE 67; RESP 18
[2024-10-29 19:54] VITALS: BP 177/84; PULSE 66; RESP 18
[2024-10-29 20:10] VITALS: BP 177/84; PULSE 62; RESP 18; TEMP 98.2; O2SAT 99
[2024-10-29 20:56] VITALS: RESP 18
[2024-10-30 02:24] VITALS: BP 150/95; PULSE 68; RESP 18; O2SAT 98
[2024-10-30 05:09] VITALS: BP 141/83; PULSE 67; RESP 18; TEMP 98.4; O2SAT 96
[2024-10-30 08:21] VITALS: BP 157/90; PULSE 82; RESP 17; TEMP 98.3; O2SAT 98
[2024-10-30] MEDS ORDERED: RISP-32 PO (12:27)
== END 2024-10-30 14:07 | disposition home or self-care (01) | DRG 885 ==
LOC: EMS 07:32 → B2X 11:18 → B2S 10-24 15:38 → B2X 10-27 13:33
PROVIDERS: ADMIT Psychiatry & Neurology Psychiatry; ATTEND Psychiatry & Neurology Psychiatry
PROC: GZHZZZZ Group Psychotherapy (ICD-10-PCS; principal; 2024-10-19)
PROC: GZ52ZZZ Individual Psychotherapy, Cognitive (ICD-10-PCS; 2024-10-22)
DX: F25.1 Schizoaffective disorder, depressive type (principal); E46 Unspecified protein-calorie malnutrition; F32.A Depression, unspecified; I10 Essential (primary) hypertension; Z20.822 Contact with and (suspected) exposure to COVID-19; F41.9 Anxiety disorder, unspecified; G47.00 Insomnia, unspecified; F15.10 Other stimulant abuse, uncomplicated; Z79.899 Other long term (current) drug therapy; Z88.0 Allergy status to penicillin; Z87.891 Personal history of nicotine dependence; Z68.20 Body mass index [BMI] 20.0-20.9, adult
CPT/HCPCS: 80048; 80053; 80061; 80076; 80307; 81001; 83036; 84443; 85025; 99285; G0480